=== PATIENT | female | born 1960 | race American Indian/Alaskan Native ===

== ENCOUNTER 2018-05-07 09:32 | Day surgery (SDC) | payer MEDICAID ==
[2018-04-20 14:06] VITALS: BMI 35.2
[2018-05-07] MEDS ORDERED: Propofol 10 mg/ml Inj (20 ML) ONE (11:59)
[2018-05-07] MEDS ORDERED: Midazolam 2 MG/2 ML VIAL ONE (11:59)
[2018-05-07] MEDS ORDERED: Ciprofloxacin 400mg/200ml D5W 400 MG/200 ML BAG IVPB ONE (12:44)
[2018-05-07] MEDS: Gentamicin 80 mg in 0.9% NS 160 MG/200 ML BAG IVPB ONE ×2 (12:45→13:00)
[2018-05-07] MEDS ORDERED: Bupivacaine-Epi 0.5%-1:200,000 PF Inj ONE (13:03)
[2018-05-07] MEDS ORDERED: Lidocaine/Epinephrine 1% 1:100000 10 ML IJ ONE (13:03)
[2018-05-07] MEDS ORDERED: Clindamycin 2% Vaginal Cream(40 gm) ONE (13:21)
--- NOTE | 2018-05-07 13:28 | PCM.SURG1 ---
Surgeon's Initial Post Op Note - Surgeon's Notes Surgeon: mustapha Investor Relations Analyst: jatin Type of Anesthesia: General LMA Anesthesia Administered By: staff Pre-Operative Diagnosis: Yuliya urethral mass Operative Findings: Periurethral abcess Post-Operative Diagnosis: yuliya urethral abcess Operation Performed: excision and drsinge of periurethral abcess Specimen/Specimens Removed: culture Estimated Blood Loss: EBL {In ML}: 0 Blood Products Given: N/A Drains Used: No Drains Post-Op Condition: Good Date of Surgery/Procedure: 05/07/18 Time of Surgery/Procedure: 13:28
[2018-05-07] MEDS ORDERED: HYDROmorphone 0.5 mg/0.5 ml ISec IVP PRN (13:33)
[2018-05-07 15:14] VITALS: BP 158/78; PULSE 66; RESP 18; TEMP 97.5; O2SAT 100
--- NOTE | 2018-05-07 22:50 | OP ---
PROCEDURE DATE: 05/07/2018 PREOPERATIVE DIAGNOSIS: Periurethral mass. POSTOPERATIVE DIAGNOSIS: Periurethral mass. PROCEDURE: Excision and drainage of periurethral abscess. SURGEON: Goyo Esteban MD FINDINGS: A periurethral abscess on the right side. DESCRIPTION OF PROCEDURE: The procedure is as follows: Prior to the procedure, the patient was asked to sign a detailed informed consent. Possible risks and complications were reviewed with the patient and alternative methods of management. She was also advised that there may be unforeseen complications not mentioned in the consent. She agreed to accept the risks and was brought in to the room and draped and prepped in the usual manner. She received prophylactic gentamicin and Cipro and she was draped and prepped in the lithotomy position. The weighted speculum was inserted in the vagina and the sutured to the thigh for better exposure. A #18 Leon catheter was inserted. Marking pens were used to josue the area of the incision. A midline incision was made over the urethra and carried down to the vaginal tissues. The tips of the vaginal mucosa incised were grasped with 2 Allis clamps and lateral dissection was carried out using a Metzenbaum scissors, only the right side was dissected. This is where the mass was palpable. On dissection, there was a cody of pus and it became apparent that this was a periurethral abscess. The abscess cavity was irrigated excessively with antibiotic solution. Adequate dissection was carried out to assure that the entire abscess was drained. Once adequate irrigation of the area had been completed and culture had been taken, the incision was closed with 3-0 Chromic suture in a discontinuous fashion. Minimal bleeding occurred. The patient tolerated the procedure well. Goyo Esteban MD
== END 2018-05-07 15:15 | disposition home or self-care (01) ==
LOC: EDBD → C.SDS 09:32
PROVIDERS: ATTEND Urology
DX: N34.0 Urethral abscess (principal); I10 Essential (primary) hypertension; Z86.73 Personal history of transient ischemic attack (TIA), and cerebral infarction without residual deficits
CPT/HCPCS: 10060; 87070; J1580; J2250; J2704; J3010

== ENCOUNTER 2018-09-22 17:42 | Emergency (ER) | payer MEDICAID ==
[2018-09-22 17:42] VITALS: BMI 35.2
[2018-09-22 17:54] VITALS: O2SAT 98
[2018-09-22] MEDS ORDERED: NIFEdipine 60 mg ER Tab PO STA (19:28)
--- NOTE | 2018-09-22 20:06 | C.PDOC ---
History Of Present Illness 57 year old female presents to the emergency department with complaints of a headache for the last 6 weeks, associated with pain in her bilateral arms and hands without neurological deficit. 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 Post-rehab, she has no residual neurological deficit. As per baseline, patient has baseline strabismus in her right eye laterally. Patient reports being seen at [facility] two days ago for evaluation of abdominal discomfort related to a urethral issue, where a CT scan of the abdomen/pelvis was done. Patient is requesting a head CT to make sure "everything is okay". Time Seen by Provider: 09/22/18 19:19 Chief Complaint (Nursing): Headache History Per: Patient History/Exam Limitations: no limitations Onset/Duration Of Symptoms: Other (6 weeks) Current Symptoms Are (Timing): Still Present Quality: Aching Associated Symptoms: Other (b/l arms and hands pain). denies: Photophobia, Blurred Vision, Nausea, Vomiting Past Medical History Reviewed: Historical Data, Nursing Documentation, Vital Signs Vital Signs: Last Vital Signs Temp 98.7 F 09/22/18 17:49 Pulse 104 H 09/22/18 17:49 Resp 18 09/22/18 17:49 BP 163/83 H 09/22/18 17:49 Pulse Ox 98 09/22/18 17:49 - Medical History PMH: HTN, Hypercholesterolemia, TIA (2015) Surgical History: No Surg Hx Family History: States: No Known Family Hx - Social History Hx Alcohol Use: Yes Hx Substance Use: No Review Of Systems Except As Marked, All Systems Reviewed And Found Negative. Constitutional: Negative for: Fever, Chills Cardiovascular: Negative for: Chest Pain Gastrointestinal: Negative for: Nausea, Vomiting, Abdominal Pain, Diarrhea Musculoskeletal: Positive for: Arm Pain, Hand Pain Neurological: Positive for: Headache Physical Exam - Physical Exam Appears: Non-toxic, No Acute Distress Skin: Normal Color, Warm, Dry Head: Atraumatic, Normacephalic Eye(s): right: Other (deviated right gaze without diplopia), left: Normal Inspection, PERRL, EOMI Ear(s): Bilateral: Normal Nose: Other (kissing turbinates bilaterally) Oral Mucosa: Moist Throat: Normal, No Erythema, No Exudate Neck: Normal, Supple Chest: Symmetrical, No Tenderness Cardiovascular: Rhythm Regular, No Murmur Respiratory: Normal Breath Sounds, No Rales, No Rhonchi, No Wheezing Gastrointestinal/Abdominal: Soft, No Tenderness Extremity: Normal ROM, No Tenderness Pulses: Left Radial: Normal, Right Radial: Normal, Left Dorsalis Pedis: Normal, Right Dorsalis Pedis: Normal Neurological/Psych: Oriented x3, Normal Speech, Normal Cognition, Normal Motor, Normal Sensation ED Course And Treatment O2 Sat by Pulse Oximetry: 98 (RA) Pulse Ox Interpretation: Normal - CT Scan/US normal head CT Other Rad Studies (CT/US): Interpreted By Me, Read By Radiologist, Radiology Report Reviewed Reevaluation Time: 20:24 Reassessment Condition: Improved Medical Decision Making Medical Decision Making: Plan: CT Head Motrin 600mg PO Procardia XL 60mg PO chronic headaches probably sinus headaches normal DAVIS no neurological deficits besides baseline R lateral strabismus. Disposition Doctor Will See Patient In The: Office Counseled Patient/Family Regarding: Studies Performed, Diagnosis - Disposition Referrals: Claudio Uriostegui MD [Medical Doctor] - Disposition: HOME/ ROUTINE Disposition Time: 20:25 Condition: GOOD Additional Instructions: continue Sinus Headache pain meds while your blood pressure is well controlled Flonase spray 1 spray to each nostril every 12 hours until the end of Winter Follow-up with Dr. Uriostegui for further neurological workups. Instructions: Sinus Headache (DC) Forms: [facility] (Indonesian) - Clinical Impression Clinical Impression: Headache - Scribe Statement The provider has reviewed the documentation as recorded by the Scribe (Shemar Gonzalez) Provider Attestation: All medical record entries made by the Scribe were at my direction and personally dictated by me. I have reviewed the chart and agree that the record accurately reflects my personal performance of the history, physical exam, medical decision making, and the department course for this patient. I have also personally directed, reviewed, and agree with the discharge instructions and disposition.
[2018-09-22 20:30] VITALS: BP 142/72; PULSE 76; RESP 16; TEMP 98.8
--- NOTE | 2018-09-23 08:53 | CT ---
Date of service: 09/22/2018 PROCEDURE: CT HEAD WITHOUT CONTRAST. HISTORY: DAVIS x 4 wks, h/o CVA but no neuro deficits COMPARISON: None available. TECHNIQUE: Axial computed tomography images were obtained through the head/brain without intravenous contrast. Radiation dose: Total exam DLP = 845.92 mGy-cm. This CT exam was performed using one or more of the following dose reduction techniques: Automated exposure control, adjustment of the mA and/or kV according to patient size, and/or use of iterative reconstruction technique. FINDINGS: HEMORRHAGE: No intracranial hemorrhage. BRAIN: No mass effect or edema. No atrophy or chronic microvascular ischemic changes. VENTRICLES: Unremarkable. No hydrocephalus. CALVARIUM: Unremarkable. PARANASAL SINUSES: Unremarkable as visualized. No significant inflammatory changes. MASTOID AIR CELLS: Unremarkable as visualized. No inflammatory changes. OTHER FINDINGS: None. IMPRESSION: Normal CT of the Head. Preliminary report was submitted by [facility] Radiology contains concordant findings.
== END 2018-09-22 20:31 | disposition home or self-care (01) ==
LOC: C.ER 17:42
DX: R51 Headache (principal); E78.00 Pure hypercholesterolemia, unspecified; I10 Essential (primary) hypertension; Z86.73 Personal history of transient ischemic attack (TIA), and cerebral infarction without residual deficits

== ENCOUNTER 2018-10-22 14:15 | Observation (INO) | payer MEDICAID, MEDICARE ==
[2018-10-22 14:23] VITALS: BMI 32.0
[2018-10-22] MEDS ORDERED: Iodixanol 320 MG/ML 100 ML BOTTLE IV ONE (16:06)
[2018-10-22 16:11] LABS: BASO % 0.6 % (0.0-2.0); EOS # 0.1 K/uL (0.0-0.7); HEMOGLOBIN 11.1 g/dL (11.0-16.0); LYMPH # 2.5 K/uL (1.0-4.3); LYMPH % 50.5 % (20.0-40.0); MEAN CELL VOLUME 82.9 fL (81.0-99.0); MEAN CORPUSCULAR HEMOGLOBIN 26.2 pg (27.0-31.0); MEAN CORPUSCULAR HGB CONC 31.6 g/dL (33.0-37.0); MEAN PLATELET VOLUME 7.4 fL (7.2-11.7); MONO # 0.3 K/uL (0.0-0.8); MONO % 5.9 % (0.0-10.0); NRBC % 0.1 % (0.0-2.0); RBC 4.24 Mil/uL (3.80-5.20); RED CELL DISTRIBUTION WIDTH 16.1 % (11.5-14.5)
[2018-10-22 16:21] LABS: INR 0.9; PROTHROMBIN TIME 10.3 SECONDS (9.7-12.2)
[2018-10-22 16:25] LABS: ALB/GLOB RATIO 1.1 (1.0-2.1); ALBUMIN 4.3 g/dL (3.5-5.0); ALT/SGPT 23 U/L (9-52); AST/SGOT 31 U/L (14-36); BLOOD UREA NITROGEN 16 mg/dL (7-17); CALCIUM 9.3 mg/dl (8.6-10.4); GFR NON-AFRICAN AMERICAN 57; HDL CHOLESTEROL 48 mg/dL (30-70)
[2018-10-22 16:36] LABS: LDL CHOLESTEROL 129 mg/dL (0-129)
--- NOTE | 2018-10-22 16:40 | CP.PCM.CON ---
History of Present Illness - History of Present Illness History of Present Illness: Consult note for Dr. Michaels. 58 year old female with PMHx of HTN presents for dizziness that began at approximately 1pm. Dizziness came on suddenly and resolved within 5 minutes after sitting down and resting. Patient has never experienced this before. Patient also complains of numbness and pain to R hand earlier today, however she does admit that the intermittent hand pain and numbness is chronic. Patient denies focal weakness, slurred speech, change in vision, confusion and any other symptoms. PMHx: HTN PSHx: abscess I&D Allergies: NKDA Social: former smoker 25 years ago, occasional wine, denies illicit drugs Family Hx: Daughter of breast cancer at 34 years old, mother with DM Past Patient History - Past Medical History & Family History Past Medical History?: Yes - Past Social History Smoking Status: Former Smoker - CARDIAC Hx Hypercholesterolemia: Yes Hx Hypertension: Yes - NEUROLOGICAL Hx Transient Ischemic Attacks (TIA): Yes (2014) - GASTROINTESTINAL Hx Bowel Surgery: Yes (age 1) - GENITOURINARY/GYNECOLOGICAL Hx Genitourinary Disorders: Yes (urethral divericulum) - PSYCHIATRIC Hx Substance Use: No - SURGICAL HISTORY Hx Surgeries: Yes Hx Section: Yes Other/Comment: cystoscopy - ANESTHESIA Hx Anesthesia: Yes Hx Anesthesia Reactions: No Hx Malignant Hyperthermia: No Meds Allergies/Adverse Reactions: Allergies Allergy/AdvReac Type Severity Reaction Status Date / Time No Known Allergies Allergy Verified 10/22/18 14:21 Physical Exam - Constitutional Appears: Well, No Acute Distress - Head Exam Head Exam: ATRAUMATIC, NORMOCEPHALIC - Eye Exam Eye Exam: EOMI, Normal appearance, PERRL Pupil Exam: NORMAL ACCOMODATION - ENT Exam ENT Exam: Mucous Membranes Moist - Neck Exam Neck exam: Positive for: Full Rom - Respiratory Exam Respiratory Exam: NORMAL BREATHING PATTERN. absent: Respiratory Distress - Neurological Exam Neurological exam: Alert, CN II-XII Intact, Normal Gait, Oriented x3 Additional comments: 5/5 muscle strength. Sensation intact. No dysdiadochokinesis. - Psychiatric Exam Psychiatric exam: Normal Affect, Normal Mood - Skin Skin Exam: Dry, Normal Color, Warm Results - Vital Signs Recent Vital Signs: Last Vital Signs Temp 98.9 F 10/22/18 14:23 Pulse 72 10/22/18 15:51 Resp 17 10/22/18 15:51 BP 145/83 10/22/18 15:51 Pulse Ox 100 10/22/18 15:51 - Labs Result Diagrams: 10/22/18 16:07 10/22/18 16:07 Labs: Laboratory Results - last 24 hr 10/22/18 10/22/18 10/22/18 16:07 16:07 16:07 WBC 5.0 RBC 4.24 Hgb 11.1 Hct 35.1 MCV 82.9 MCH 26.2 L MCHC 31.6 L RDW 16.1 H Plt Count 274 MPV 7.4 Neut % (Auto) 40.0 L Lymph % (Auto) 50.5 H Bailey % (Auto) 5.9 Eos % (Auto) 3.0 Baso % (Auto) 0.6 Neut # (Auto) 2.0 Lymph # (Auto) 2.5 Bailey # (Auto) 0.3 Eos # (Auto) 0.1 Baso # (Auto) 0.0 PT 10.3 INR 0.9 APTT 34 Sodium 137 Potassium 4.1 Chloride 103 Carbon Dioxide 28 Anion Gap 10 BUN 16 Creatinine 1.0 Est GFR ( Amer) > 60 Est GFR (Non-Af Amer) 57 Random Glucose 202 H D Hemoglobin A1c Calcium 9.3 Total Bilirubin 0.2 AST 31 ALT 23 Alkaline Phosphatase 74 Total Protein 8.0 Albumin 4.3 Globulin 3.7 Albumin/Globulin Ratio 1.1 Triglycerides 160 H Cholesterol 195 HDL Cholesterol 48 10/22/18 16:07 WBC RBC Hgb Hct MCV MCH MCHC RDW Plt Count MPV Neut % (Auto) Lymph % (Auto) Bailey % (Auto) Eos % (Auto) Baso % (Auto) Neut # (Auto) Lymph # (Auto) Bailey # (Auto) Eos # (Auto) Baso # (Auto) PT INR APTT Sodium Potassium Chloride Carbon Dioxide Anion Gap BUN Creatinine Est GFR ( Amer) Est GFR (Non-Af Amer) Random Glucose Hemoglobin A1c 6.7 H Calcium Total Bilirubin AST ALT Alkaline Phosphatase Total Protein Albumin Globulin Albumin/Globulin Ratio Triglycerides Cholesterol HDL Cholesterol Assessment & Plan - Assessment and Plan (Free Text) Assessment: 58 year old female with PMHx of HTN presents for dizziness. Plan: -No neurological deficit on exam -f/u CT head -f/u CTA head/neck Further recs as per Dr. Michaels. Sultana Leyva PGY-1
--- NOTE | 2018-10-22 16:49 | CT ---
Date of service: 10/22/2018 PROCEDURE: CT HEAD WITHOUT CONTRAST. HISTORY: Code Stroke COMPARISON: None available. TECHNIQUE: Axial computed tomography images were obtained through the head/brain without intravenous contrast. Radiation dose: Total exam DLP = 876.78 mGy-cm. This CT exam was performed using one or more of the following dose reduction techniques: Automated exposure control, adjustment of the mA and/or kV according to patient size, and/or use of iterative reconstruction technique. FINDINGS: HEMORRHAGE: There are no acute parenchymal, subarachnoid or extra-axial hemorrhages. BRAIN: Few scattered bilateral basal nuclei chronic appearing lacunar type infarcts are present. There also appears to be minor diffuse and confluent chronic periventricular white matter ischemic changes as well. Note however that the possibility of a small hyperacute infarct not excluded on this study there. Mild age-appropriate volume loss. Vascular calcifications both carotid and to a lesser degree left vertebral artery. VENTRICLES: No obstructive hydrocephalus. CALVARIUM: Calvarium intact. PARANASAL SINUSES: Unremarkable as visualized. No significant inflammatory changes. MASTOID AIR CELLS: Unremarkable as visualized. No inflammatory changes. OTHER FINDINGS: None. IMPRESSION: Minor chronic periventricular white matter ischemic changes with a few scattered chronic bilateral basal nuclei lacunar type infarcts. Note that the possibility of a small hyperacute infarct cannot be excluded based on this study. Findings discussed with Dr. Castillo at 4:42 p.m. with written down and read back verification
--- NOTE | 2018-10-22 17:02 | CT ---
Date of service: 10/22/2018 PROCEDURE: CT Angiography of the neck with contrast HISTORY: Code stroke COMPARISON: None. TECHNIQUE: Contiguous axial images of the neck were obtained from the level of the skull-base to the superior mediastinum in the arteriographic phase of enhancement. Coronal and sagittal reformats or also generated. IV contrast dose: 100 cc Visipaque 320 contrast material. Radiation dose: Total exam DLP = 593.23 mGy-cm. This CT exam was performed using one or more of the following dose reduction techniques: Automated exposure control, adjustment of the mA and/or kV according to patient size, and/or use of iterative reconstruction technique. FINDINGS: Aortic arch is widely patent. Minimal aortic atherosclerotic calcification or mural plaque present. . Both common carotid arteries are patent. There is mild atherosclerotic calcified plaque left carotid bifurcation that results in narrowing estimated of approximately 30% diameter stenosis. The distal internal carotid arteries including the petrous cavernous and supraclinoid carotid segments are patent although there are partially calcified atherosclerotic plaque changes seen along the cavernous carotid segments. The vertebral arteries are patent. Basilar artery is also patent. The visualized major branches of the [id number]-xi-[id number] are also patent with no large aneurysm nor vascular malformation identified. The distal anterior middle and posterior cerebral arteries are patent appear relatively symmetric. OTHER FINDINGS: Note made of a small of approximately 10 mm elliptical shaped low-attenuation lesion left lobe thyroid gland. Questionable low-attenuation lesion right lobe thyroid gland. IMPRESSION: Calcified atherosclerotic plaque left carotid bifurcation which results in narrowing estimated approximately 30 % diameter stenosis. No evidence of occlusion of the intra cerebral circulation. See above discussion for additional details and findings
--- NOTE | 2018-10-22 18:06 | C.PDOC ---
History Of Present Illness 58 year old female with a history of HTN presents to the emergency department with complaints of acute onset of dizziness while at work today. Patient is employed as a seasonal retail merchandiser, and states that she went to use the restroom and on her way back she experienced room-spinning dizziness, feeling as if she was going to fall. Patient states that she began to experience pain to her right hand and right arm. Patient has a history of TIA a few years ago. Patient denies haeadache, neck pain, nausea, vomiting, diarrhea, fever, and chills. While in ED, her dizziness has subsided. Time Seen by Provider: 10/22/18 15:49 Chief Complaint (Nursing): Dizziness/Lightheaded History Per: Patient History/Exam Limitations: no limitations Onset/Duration Of Symptoms: Hrs Current Symptoms Are (Timing): Still Present Activity At Onset Of Symptoms: Walking Associated Symptoms Preceding Syncopal Episode: Vertigo Seizure Or Post-ictal Symptoms: None Possible Causative Factor(s): Vertigo Fall Associated With With Symptoms: No Past Medical History Reviewed: Historical Data, Nursing Documentation, Vital Signs Vital Signs: Last Vital Signs Temp 97.9 F 10/22/18 17:05 Pulse 74 10/22/18 17:05 Resp 18 10/22/18 17:05 BP 154/85 H 10/22/18 17:05 Pulse Ox 99 10/22/18 17:05 - Medical History PMH: HTN, Hypercholesterolemia, TIA (2015) Surgical History: No Surg Hx Family History: States: No Known Family Hx - Social History Hx Alcohol Use: Yes Hx Substance Use: No Review Of Systems Except As Marked, All Systems Reviewed And Found Negative. Constitutional: Negative for: Fever, Chills Cardiovascular: Negative for: Chest Pain Respiratory: Negative for: Cough, Shortness of Breath Gastrointestinal: Negative for: Nausea, Vomiting, Abdominal Pain, Diarrhea Musculoskeletal: Positive for: Arm Pain (right), Hand Pain (right) Neurological: Positive for: Dizziness (vertigo) Physical Exam - Physical Exam Appears: Non-toxic, No Acute Distress Skin: Normal Color, Warm, Dry Head: Atraumatic, Normacephalic Eye(s): bilateral: Normal Inspection, PERRL, EOMI Ear(s): Bilateral: Normal Nose: Normal Oral Mucosa: Moist Neck: Normal, Supple Chest: Symmetrical, No Tenderness Cardiovascular: Rhythm Regular, No Murmur Respiratory: Normal Breath Sounds, No Rales, No Rhonchi, No Wheezing Gastrointestinal/Abdominal: Soft, No Tenderness, No Guarding, No Rebound Extremity: Normal ROM Neurological/Psych: Oriented x3, Normal Speech, Normal Cognition, Normal Cranial Nerves, Normal Motor, Normal Sensation, Normal Reflexes, Other (no weakness to extremities) Gait: Steady ED Course And Treatment - Laboratory Results Result Diagrams: 10/22/18 16:07 10/22/18 16:07 Lab Results: PT 10.3 SECONDS (9.7-12.2) 10/22/18 16:07 INR 0.9 10/22/18 16:07 APTT 34 SECONDS (21-34) 10/22/18 16:07 Troponin I < 0.0120 ng/mL (0.00-0.120) 10/22/18 16:07 Total Bilirubin 0.2 mg/dL (0.2-1.3) 10/22/18 16:07 AST 31 U/L (14-36) 10/22/18 16:07 ALT 23 U/L (9-52) 10/22/18 16:07 Alkaline Phosphatase 74 U/L (38-126) 10/22/18 16:07 Total Protein 8.0 g/dL (6.3-8.3) 10/22/18 16:07 Albumin 4.3 g/dL (3.5-5.0) 10/22/18 16:07 Globulin 3.7 gm/dL (2.2-3.9) 10/22/18 16:07 Albumin/Globulin Ratio 1.1 (1.0-2.1) 10/22/18 16:07 O2 Sat by Pulse Oximetry: 99 (RA) Pulse Ox Interpretation: Normal - CT Scan/US CTA Head Neck Other Rad Studies (CT/US): Read By Radiologist, Radiology Report Reviewed CT/US Interpretation: IMPRESSION: Calcified atherosclerotic plaque left carotid bifurcation which results in narrowing estimated approximately 30 % diameter stenosis. No evidence of occlusion of the intra cerebral circulation. See above discussion for additional details and findings CT Head Other Rad Studies (CT/US): Read By Radiologist, Radiology Report Reviewed CT/US Interpretation: IMPRESSION: Minor chronic periventricular white matter ischemic changes with a few scattered chronic bilateral basal nuclei lacunar type infarcts. Note that the possibility of a small hyperacute infarct cannot be excluded based on this study. Findings discussed with Dr. Castillo at 4:42 p.m. with written down and read back verification NIHSS Stroke Scale 2 - Date/Time Evaluation Performed Date Performed: 10/22/18 Time Performed: 14:15 When Was NIHSS Performed: Baseline - How Severe is the Stroke Level of Consciousness: 0=Alert LOC to Questions: 0=Both comments correct LOC to commands: 0=Obeys both correctly Best Gaze: 0=Normal Visual: 0=No visual loss Facial: 0=Normal Motor Arm - Left: 0=No drift Motor Arm - Right: 0=No drift Motor Leg - Left: 0=No drift Motor Leg - Right: 0=No drift Limb Ataxia: 0=Absent Sensory: 0=Normal Best Language: 0=No aphasia Dysarthia: 0=Normal articulation Extinction & Inattention (Neglect): 0=Normal, no object Score: 0 Medical Decision Making Medical Decision Making: Plan: Blood Bank Type and Screen CTA Code Stroke CT Head EKG Chemistry Hematology CXR MRI Brain Code stroke was called, patient's CTA Code Stroke was unremarkable. Patient endorses that she has pain to both hands and that she has been treated for carpal tunnel syndrome recently. Disposition Discussed With Dr.: Dinora Sandoval Counseled Patient/Family Regarding: Studies Performed, Diagnosis - Disposition Disposition: HOSPITALIZED Disposition Time: 18:05 Condition: GUARDED - POA Present On Arrival: None - Clinical Impression Clinical Impression: Dizziness, TIA (transient ischemic attack) - Scribe Statement The provider has reviewed the documentation as recorded by the Scribe (Shemar Carlos) Provider Attestation: All medical record entries made by the Scribe were at my direction and personally dictated by me. I have reviewed the chart and agree that the record accurately reflects my personal performance of the history, physical exam, medical decision making, and the department course for this patient. I have also personally directed, reviewed, and agree with the discharge instructions and disposition. Decision To Admit - Pt Status Changed To: Hospital Disposition Of: Observation - . Bed Request Type: Regular Admitting Physician: Dinora Sandoval Patient Diagnosis: Dizziness, TIA (transient ischemic attack)
[2018-10-23 03:00] VITALS: RESP 20
[2018-10-23] MEDS ORDERED: Losartan 12.5 MG TAB PO SCH (10:00)
[2018-10-23] MEDS ORDERED: NIFEdipine 60 mg ER Tab PO SCH (10:00)
[2018-10-23] MEDS ORDERED: Enoxaparin 40 mg Syringe SC SCH (10:00)
--- NOTE | 2018-10-23 10:42 | MRI ---
Date of service: 10/22/2018 PROCEDURE: MRI BRAIN WITHOUT CONTRAST HISTORY: dizziness, r/o CVA COMPARISON: CT head without contrast from 10/22/2018. TECHNIQUE: Multiplanar, multisequence MR images of the brain were obtained without intravenous contrast enhancement. FINDINGS: HEMORRHAGE: None DWI: No evidence of an acute or early subacute infarction. BRAIN PARENCHYMA: There are multifocal T2/FLAIR hyperintense foci in the subcortical and periventricular white matter and confluent T2/FLAIR hyperintensities in the peritrigonal periventricular white matter.. There is no mass, mass effect or abnormal extra-axial fluid collection. There is no territorial infarction. The midline sagittal structures are normal. VENTRICLES: Unremarkable. No hydrocephalus. CRANIUM: There is normal bone marrow signal pattern. ORBITS: Grossly unremarkable. PARANASAL SINUSES/MASTOIDS: Predominantly clear. VASCULAR SYSTEM: Skull base flow voids intact. OTHER FINDINGS: None. IMPRESSION: No acute intracranial abnormality. Moderate supratentorial white matter changes are strictly nonspecific but statistically in this age group most compatible with mild chronic microangiopathic changes. A preliminary report was provided by [facility].
--- NOTE | 2018-10-23 10:57 | CP.PCM.HP ---
History of Present Illness - History of Present Illness History of Present Illness: pt came to ed felt dizzy while at work and discomfort r hand Present on Admission - Present on Admission Any Indicators Present on Admission: No Review of Systems - Review of Systems Systems not reviewed;Unavailable: Acuity of Condition - Constitutional Constitutional: As Per HPI - EENT Eyes: As Per HPI Ears: As Per HPI Nose/Mouth/Throat: As Per HPI - Breasts Breasts: As Per HPI - Cardiovascular Cardiovascular: As Per HPI - Respiratory Respiratory: As Per HPI - Gastrointestinal Gastrointestinal: As Per HPI - Genitourinary Genitourinary: As Per HPI - Reproductive: Female Reproductive:Female: As Per HPI - Menstruation Menstruation: As Per HPI - Musculoskeletal Musculoskeletal: As Per HPI - Integumentary Integumentary: As Per HPI - Psychiatric Psychiatric: As Per HPI - Endocrine Endocrine: As Per HPI - Hematologic/Lymphatic Hematologic: As Per HPI Past Patient History - Past Medical History & Family History Past Medical History?: Yes - Past Social History Smoking Status: Former Smoker - CARDIAC Hx Hypercholesterolemia: Yes Hx Hypertension: Yes - NEUROLOGICAL Hx Transient Ischemic Attacks (TIA): Yes (2014) - GASTROINTESTINAL Hx Bowel Surgery: Yes (age 1) - GENITOURINARY/GYNECOLOGICAL Hx Genitourinary Disorders: Yes (urethral divericulum) - PSYCHIATRIC Hx Substance Use: No - SURGICAL HISTORY Hx Surgeries: Yes Hx Section: Yes Other/Comment: cystoscopy - ANESTHESIA Hx Anesthesia: Yes Hx Anesthesia Reactions: No Hx Malignant Hyperthermia: No Meds Allergies/Adverse Reactions: Allergies Allergy/AdvReac Type Severity Reaction Status Date / Time No Known Allergies Allergy Verified 10/22/18 14:21 Physical Exam - Constitutional Appears: Non-toxic - Head Exam Head Exam: ATRAUMATIC - Eye Exam Eye Exam: Normal appearance Pupil Exam: NORMAL ACCOMODATION - ENT Exam ENT Exam: Mucous Membranes Moist - Neck Exam Neck exam: Positive for: Normal Inspection - Respiratory Exam Respiratory Exam: Clear to Auscultation Bilateral - Cardiovascular Exam Cardiovascular Exam: REGULAR RHYTHM - GI/Abdominal Exam GI & Abdominal Exam: Normal Bowel Sounds - Rectal Exam Rectal Exam: NORMAL INSPECTION - Exam Exam: NORMAL INSPECTION - Extremities Exam Extremities exam: Positive for: normal inspection - Back Exam Back exam: NORMAL INSPECTION - Neurological Exam Neurological exam: Alert, Normal Gait, Oriented x3, Reflexes Normal - Psychiatric Exam Psychiatric exam: Normal Affect - Skin Skin Exam: Normal Color Results - Vital Signs Recent Vital Signs: Last Vital Signs Temp 97.7 F 10/23/18 09:12 Pulse 55 L 10/23/18 09:12 Resp 20 10/23/18 09:12 BP 129/74 10/23/18 09:12 Pulse Ox 98 10/23/18 09:12 - Labs Result Diagrams: 10/22/18 16:07 10/22/18 16:07 Labs: Laboratory Results - last 24 hr 10/22/18 10/22/18 10/22/18 16:07 16:07 16:07 WBC 5.0 RBC 4.24 Hgb 11.1 Hct 35.1 MCV 82.9 MCH 26.2 L MCHC 31.6 L RDW 16.1 H Plt Count 274 MPV 7.4 Neut % (Auto) 40.0 L Lymph % (Auto) 50.5 H Desha % (Auto) 5.9 Eos % (Auto) 3.0 Baso % (Auto) 0.6 Neut # (Auto) 2.0 Lymph # (Auto) 2.5 Desha # (Auto) 0.3 Eos # (Auto) 0.1 Baso # (Auto) 0.0 PT 10.3 INR 0.9 APTT 34 Sodium 137 Potassium 4.1 Chloride 103 Carbon Dioxide 28 Anion Gap 10 BUN 16 Creatinine 1.0 Est GFR ( Amer) > 60 Est GFR (Non-Af Amer) 57 Random Glucose 202 H D Hemoglobin A1c Calcium 9.3 Total Bilirubin 0.2 AST 31 ALT 23 Alkaline Phosphatase 74 Troponin I < 0.0120 Total Protein 8.0 Albumin 4.3 Globulin 3.7 Albumin/Globulin Ratio 1.1 Triglycerides 160 H Cholesterol 195 LDL Cholesterol Direct 129 HDL Cholesterol 48 Blood Type Antibody Screen 10/22/18 10/22/18 16:07 16:07 WBC RBC Hgb Hct MCV MCH MCHC RDW Plt Count MPV Neut % (Auto) Lymph % (Auto) Desha % (Auto) Eos % (Auto) Baso % (Auto) Neut # (Auto) Lymph # (Auto) Desha # (Auto) Eos # (Auto) Baso # (Auto) PT INR APTT Sodium Potassium Chloride Carbon Dioxide Anion Gap BUN Creatinine Est GFR ( Amer) Est GFR (Non-Af Amer) Random Glucose Hemoglobin A1c 6.7 H Calcium Total Bilirubin AST ALT Alkaline Phosphatase Troponin I Total Protein Albumin Globulin Albumin/Globulin Ratio Triglycerides Cholesterol LDL Cholesterol Direct HDL Cholesterol Blood Type B NEGATIVE Antibody Screen Negative Assessment & Plan - Assessment and Plan (Free Text) Assessment: ac dizziness htn arthralgia r hand improving Plan: if remain stable will discharge on med - Date & Time Date: 10/23/18 Time: 10:59
--- NOTE | 2018-10-23 11:10 | CP.PCM.PN ---
Subjective - Date & Time of Evaluation Date of Evaluation: 10/23/18 Time of Evaluation: 11:07 - Subjective Subjective: Neuro Follow-Up Note: Mrs. Uriostegui was evaluated this afternoon at bedside. Family present. Pt admits that her dizziness resolved yesterday and has not returned. She does admit to having some numbness, tingling, and a "burning" sensation to her finger tips and both feet. She states that she has had these symptoms for "a long time" and they haven;t gotten worse, but have remained the same. Pt does f/u with a PMD, though she says he doesn't routinely check her labs and states she was never diagnosed with DM. Otherwise, she feels good and denies h/a, dizziness, visual changes, chest pain, sob, abd pain. Objective - Vital Signs/Intake and Output Vital Signs (last 24 hours): Temp Pulse Resp BP Pulse Ox 97.7 F 55 L 20 129/74 98 10/23/18 09:12 10/23/18 09:12 10/23/18 09:12 10/23/18 09:12 10/23/18 09:12 - Medications Medications: Current Medications Aspirin (Aspirin) 325 mg PO DAILY [facility] Last Admin: 10/23/18 09:38 Dose: 325 mg Enoxaparin Sodium (Lovenox) 40 mg SC DAILY [facility] Last Admin: 10/23/18 09:39 Dose: 40 mg Influenza Virus Vaccine (Flucelvax Quad 6551-5010 Syr) 60 mcg IM .ONCE ONE Stop: 10/24/18 10:01 Losartan Potassium (Cozaar) 50 mg PO DAILY [facility] Nifedipine (Procardia Xl) 60 mg PO DAILY [facility] Last Admin: 10/23/18 09:38 Dose: 60 mg Rosuvastatin Calcium (Crestor) 5 mg PO HS [facility] - Labs Labs: 10/22/18 16:07 10/22/18 16:07 PT 10.3 SECONDS (9.7-12.2) 10/22/18 16:07 INR 0.9 10/22/18 16:07 APTT 34 SECONDS (21-34) 10/22/18 16:07 - Constitutional Appears: Well, Non-toxic, No Acute Distress - Head Exam Head Exam: ATRAUMATIC, NORMAL INSPECTION, NORMOCEPHALIC - Eye Exam Eye Exam: EOMI, Normal appearance, PERRL Pupil Exam: NORMAL ACCOMODATION, PERRL - ENT Exam ENT Exam: Mucous Membranes Moist - Neck Exam Neck Exam: Full ROM, Normal Inspection - Respiratory Exam Respiratory Exam: NORMAL BREATHING PATTERN - Extremities Exam Extremities Exam: Full ROM, Normal Inspection. absent: Calf Tenderness, Pedal Edema - Neurological Exam Neurological Exam: Alert, Awake, CN II-XII Intact, Normal Gait, Oriented x3, Reflexes Normal Neuro motor strength exam: Left Upper Extremity: 5, Right Upper Extremity: 5, Left Lower Extremity: 5, Right Lower Extremity: 5 Additional comments: No sensory deficits to BUE and BLE No dysmetria b/l - Psychiatric Exam Psychiatric exam: Normal Affect, Normal Mood - Skin Skin Exam: Normal Color Assessment and Plan (1) Dizziness Assessment & Plan: Imaging noted: -MRI Brain (): No acute intracranial abnormality. Moderate supratentorial white matter changes are strictly nonspecific but statistically in this age group most compatible with mild chronic microangiopathic changes. -CTA Head and Neck (10/22/18): Calcified atherosclerotic plaque left carotid bifurcation which results in narrowing estimated approximately 30 % diameter stenosis. No evidence of occlusion of the intra cerebral circulation. See above discussion for additional details and findings. -CT Head (10/22/18): Minor chronic periventricular white matter ischemic changes with a few scattered chronic bilateral basal nuclei lacunar type infarcts. Note that the possibility of a small hyperacute infarct cannot be excluded based on this study. -Pt is stable for d/c home today from neuro standpoint. -I discussed neuropathy symptoms with the pt. -Continue ASA, Statin, and other home medications. -She is to f/u with Dr. Sandoval in the office within 2 weeks. She can f/u with neuro if symptoms return. Chinyere Rodas, [employer], [employer] Discussed with Dr. Michaels Status: Acute
--- NOTE | 2018-10-23 11:45 | RAD ---
Date of service: 10/22/2018 HISTORY: Code Stroke COMPARISON: 04/20/2018 FINDINGS: LUNGS: No active pulmonary disease. PLEURA: No significant pleural effusion identified, no pneumothorax apparent. CARDIOVASCULAR: No aortic atherosclerotic calcification present. Normal cardiac size. No pulmonary vascular congestion. OSSEOUS STRUCTURES: No significant abnormalities. VISUALIZED UPPER ABDOMEN: Normal. OTHER FINDINGS: None. IMPRESSION: No acute cardiopulmonary pathology noted. No interval pathology noted
[2018-10-23 12:04] VITALS: O2SAT 99
--- NOTE | 2018-10-23 14:44 | CP.PCM.PN ---
Subjective - Date & Time of Evaluation Date of Evaluation: 10/23/18 Time of Evaluation: 14:45 - Subjective Subjective: Patient seen today, states feels better denies any numbness/ tinglings, dizziness vss- stable Objective - Vital Signs/Intake and Output Vital Signs (last 24 hours): Temp Pulse Resp BP Pulse Ox 97.7 F 55 L 20 129/74 99 10/23/18 09:12 10/23/18 09:12 10/23/18 09:12 10/23/18 09:12 10/23/18 12:04 - Medications Medications: Current Medications Aspirin (Aspirin) 325 mg PO DAILY [facility] Last Admin: 10/23/18 09:38 Dose: 325 mg Enoxaparin Sodium (Lovenox) 40 mg SC DAILY [facility] Last Admin: 10/23/18 09:39 Dose: 40 mg Influenza Virus Vaccine (Flucelvax Quad 8429-8389 Syr) 60 mcg IM .ONCE ONE Stop: 10/24/18 10:01 Losartan Potassium (Cozaar) 50 mg PO DAILY [facility] Last Admin: 10/23/18 11:35 Dose: 50 mg Nifedipine (Procardia Xl) 60 mg PO DAILY [facility] Last Admin: 10/23/18 09:38 Dose: 60 mg Pneumococcal Polyvalent Vaccine (Pneumovax 23 Vaccine) 0.5 ml IM .ONCE ONE Stop: 10/24/18 10:01 Rosuvastatin Calcium (Crestor) 5 mg PO HS [facility] - Labs Labs: 10/22/18 16:07 10/22/18 16:07 PT 10.3 SECONDS (9.7-12.2) 10/22/18 16:07 INR 0.9 10/22/18 16:07 APTT 34 SECONDS (21-34) 10/22/18 16:07 Assessment and Plan - Assessment and Plan (Free Text) Assessment: A/P 58 year old female with a history of HTN presents to the emergency department with complaints of acute onset of dizziness, / TIA symptoms Dr. Kinney consulted MRI-No acute intracranial abnormality. Moderate supratentorial white matter changes are strictly nonspecific but statistically in this age group most compatible with mild chronic micro angiopathic changes. head /neck- CT -Calcified atherosclerotic plaque left carotid bifurcation which results in narrowing estimated approximately 30 % diameter stenosis. No evidence of occlusion of the intra cerebral circulation. SEEN by neuro team cleared fro discharge from neurology standpoint D/w Dr. Sandoval, cleared for discharge home today and f/u with Dr. Sandoval office in 1 week discharge plan discussed with patient who understands and agrees with plan patient instructed to returs to ED if symptoms returns or any other concerning symptoms
[2018-10-23] MEDS ORDERED: Pneumococcal 23-Valent Vaccine IM ONE (15:04)
[2018-10-23] MEDS ORDERED: Influenza Vaccine 60 mcg/0.5 mL SYR (4YR UP) IM ONE (15:04)
[2018-10-23 15:58] VITALS: BP 169/79; PULSE 60; TEMP 97.6
[2018-10-24] MEDS ORDERED: Pneumococcal 23-Valent Vaccine IM ONE (10:00)
[2018-10-24] MEDS ORDERED: Influenza Vaccine 60 mcg/0.5 mL SYR (4YR UP) IM ONE (10:00)
--- NOTE | 2018-10-24 22:46 | CARD ---
APPROVED REPORT Date of service: 10/22/2018 EKG Measurement Heart [id number] ID [id number] <Conclusion> Normal sinus rhythm T wave abnormality, consider inferior ischemia Prolonged QT Abnormal ECG
--- NOTE | 2018-10-24 22:48 | CARD ---
APPROVED REPORT Date of service: 10/22/2018 EKG Measurement Heart [id number] <Conclusion> Normal sinus rhythm Nonspecific ST and T wave abnormality Abnormal ECG
== END 2018-10-23 16:26 | disposition home or self-care (01) ==
LOC: C.ER 14:15 → C.9E 18:06 → C.6T 22:53
PROVIDERS: ADMIT Internal Medicine; ATTEND Internal Medicine
DX: R42 Dizziness and giddiness (principal); E78.00 Pure hypercholesterolemia, unspecified; I10 Essential (primary) hypertension; Z86.73 Personal history of transient ischemic attack (TIA), and cerebral infarction without residual deficits; Z87.891 Personal history of nicotine dependence
CPT/HCPCS: 70450; 70496; 70498; 70551; 71045; 80053; 80061; 82948; 83036; 84484; 85025; 85610; 85730; 86850; 86900; 90471; 90674; 90732; 97116; 97161; 97165; 97530; G0378; G8978; G8979; G8980; G8987; G8988; G8989; J1650; Q9967